=== PATIENT | male | born 1985 | race Caucasian/White ===

== ENCOUNTER 2017-04-02 06:59 | Emergency (ER) | payer MEDICAID ==
[2017-04-02] MEDS ORDERED: KETOROLAC 30 MG/ML VIAL IM ONE (07:20)
--- NOTE | 2017-04-02 07:25 | Emergency Department Record ---
History of Present Illness - General Chief Complaint: Back Pain/Injury Stated Complaint: BACK INJURY Time Seen by Provider: 04/02/17 07:15 Source: Patient Mode of Arrival: Ambulatory Limitations: No limitations - History of Present Illness Initial Comments: 31 yo male presents with lower back pain after trying to start a minibike motor. The pain radiates to the right gluteal area. No numbness or tingling. No weakness. No foot drop. He has a history of lumbar disease with prior surgery. No fever. No trauma. No changes in bowel or bladder function. MD Complaint: Back pain, Back injury Onset/Timin -: Days(s) Similar Symptoms Previously: Yes Place: Home Radiation: Right leg Severity scale (1-10): 8 Quality: Sharp Consistency: Constant Improves With: Immobilization Worsens With: Movement, Sitting upright, Supine Context: Other Associated Symptoms: Denies other symptoms - Related Data Previous Rx's Medication Instructions Recorded Cyclobenzaprine HCl [Flexeril] 10 mg PO TID #25 tablet 04/02/17 Methylprednisolone [Medrol Dose 0 mg PO UD #1 tab.ds.pk 04/02/17 Pack] Naproxen [Naprosyn] 500 mg PO Q12H #20 tab.dr 04/02/17 Allergies Allergy/AdvReac Type Severity Reaction Status Date / Time No Known Drug Allergies Allergy Verified 04/01/16 08:32 Travel Screening - Travel/Exposure Within Last 30 Days Have you traveled within the last 30 days?: No Location Detail:: [place] - Travel/Exposure Within Last Year Have you traveled outside the [place] in the last year?: No - Additonal Travel Details Have you been exposed to anyone with a communicable illness?: No - Travel Symptoms Symptom Screening: None Review of Systems Constitutional: Denies: Chills, Fever, Malaise, Weakness Eyes: Denies: Eye discharge ENT: Denies: Congestion, Throat pain Respiratory: Denies: Cough, Dyspnea, Hemoptysis, Stridor, Wheezes Cardiovascular: Denies: Chest pain, Palpitations, Syncope Endocrine: Denies: Fatigue Gastrointestinal: Denies: Abdominal pain, Constipation, Diarrhea, Nausea, Vomiting Genitourinary: Denies: Dysuria, Frequency, Hematuria, Retention, Urgency Musculoskeletal: Reports: Back pain, Myalgia. Denies: Joint swelling, Neck pain Skin: Denies: Bruising, Change in color, Rash Neurological: Denies: Headache, Numbness, Weakness Psychiatric: Denies: Anxiety Hematological/Lymphatic: Denies: Blood Clots, Easy bleeding, Easy bruising, Swollen glands Past Medical History - SOCIAL HISTORY Smoking Status: Current every day smoker Drug Use: Occassional Drug Use Detail:: Marijuana - RESPIRATORY Hx Respiratory Disorders: No - CARDIOVASCULAR Hx Cardio Disorders: No - NEURO Hx Neuro Disorders: No - GI Hx GI Disorders: No - Hx Genitourinary Disorders: No - ENDOCRINE Hx Endocrine Disorders: No - MUSCULOSKELETAL Hx Musculoskeletal Disorders: Yes Hx Back Injury: Yes (L4) - PSYCH Hx Psych Problems: No - HEMATOLOGY/ONCOLOGY Hx Hematology/Oncology Disorders: No Family Medical History Any Significant Family History?: No Physical Exam - General General Appearance: Alert, Oriented x3, Cooperative, No acute distress Limitations: No limitations - Head Head exam: Atraumatic, Normocephalic, Normal inspection - Eye Eye exam: Normal appearance, PERRL. negative: Conjunctival injection, Periorbital swelling - ENT ENT exam: Normal exam Ear exam: Normal external inspection Nasal Exam: Normal inspection Mouth exam: Normal external inspection - Neck Neck exam: Normal inspection - Respiratory Respiratory exam: Normal lung sounds bilaterally. negative: Respiratory distress - Cardiovascular Cardiovascular Exam: Regular rate, Normal rhythm, Normal heart sounds - GI/Abdominal GI/Abdominal exam: Soft. negative: Distended, Rigid, Tenderness - Rectal Rectal exam: Deferred - exam: Deferred - Extremities Extremities exam: Normal inspection, Full ROM, Normal capillary refill, Other ( No foot drop, no weakness with plantar or dorsiflexion). negative: Tenderness Image of Full Body: 1 - tender paraspinal, mild, normal inspection, - Back Back exam: Reports: Normal inspection, Paraspinal tenderness - Neurological Neurological exam: Alert, Normal gait, Oriented X3, Reflexes normal. negative: Altered, Motor sensory deficit - Psychiatric Psychiatric exam: Normal affect, Normal mood - Skin Skin exam: Dry, Intact, Normal color, Warm Course Vital Signs 04/02/17 07:02 Temperature 97.7 F Pulse Rate 64 Respiratory 16 Rate Blood Pressure 130/83 Pulse Ox 98 - Reevaluation(s) Reevaluation #1: The patient is not having any neurologic symptoms by history or on examination DC home with Medrol dose pack and msucle relaxant 04/02/17 07:24 Disposition Disposition: Discharge Clinical Impression: Lumbar strain Qualifiers: Encounter type: initial encounter Qualified Code(s): S39.012A - Strain of muscle, fascia and tendon of lower back, initial encounter Disposition: Home, Self-Care Condition: (1) Good Instructions: Low Back Strain (ED) Additional Instructions: Rest and avoid bending or lifting Return or be seen if worse, weakness, numb or any new concerns Prescriptions: Cyclobenzaprine HCl [Flexeril] 10 mg PO TID #25 tablet Methylprednisolone [Medrol Dose Pack] 0 mg PO UD #1 tab.ds.pk Naproxen [Naprosyn] 500 mg PO Q12H #20 tab.dr Forms: Patient Portal Access Time of Disposition: 07:31
== END 2017-04-02 07:54 | disposition home or self-care (01) ==
LOC: ER 06:59
DX: S39.012A Strain of muscle, fascia and tendon of lower back, initial encounter (principal); X50.0XXA Overexertion from strenuous movement or load, initial encounter; Y92.009 Unspecified place in unspecified non-institutional (private) residence as the place of occurrence of the external cause
CPT/HCPCS: 99283 ×2; 96372; J1885

== ENCOUNTER 2019-04-21 10:58 | Emergency (ER) | payer MEDICAID ==
[2019-04-21] MEDS ORDERED: METHYLPREDNISOLONE PF 125MG/VIAL IM ONE (11:27)
[2019-04-21] MEDS ORDERED: KETOROLAC 30 MG/ML VIAL IM ONE (11:37)
--- NOTE | 2019-04-21 11:37 | Emergency Department Record ---
History of Present Illness - General Chief Complaint: Back Pain/Injury Stated Complaint: LOWER BACK PAIN Time Seen by Provider: 04/21/19 11:09 Source: Patient Mode of Arrival: Ambulatory Limitations: No limitations - History of Present Illness Initial Comments: The patient is here due to worsening of his chronic low back pain. The patient has a long hx of similar issues and was working last week when he aggravated his low back. The pain is sharp and aching and much worse with any movement or bending. There is no pain radiating down the legs and no leg numbness, weakness or any bowel or bladder issues. The patient is scheduled for low back injections from the pain clinic in [place] next month. He denies any new issues or any traumatic injuries. MD Complaint: Back pain Onset/Timin -: Days(s) Similar Symptoms Previously: Yes Radiation: None Severity scale (1-10): 10 Quality: Sharp Improves With: None Worsens With: None Context: Other Associated Symptoms: Denies other symptoms - Related Data Home Medications Medication Instructions Recorded Confirmed Last Taken Gabapentin 300 mg PO TID 04/21/19 04/21/19 04/21/19 Hydrocodone/Acetaminophen 1 tab PO ASDIR 04/21/19 04/21/19 04/21/19 [Hydrocodone/Acetaminophen 5mg/325mg] Previous Rx's Medication Instructions Recorded Methylprednisolone [Medrol Dose 4 mg PO DAILY #1 tab.ds.pk 04/21/19 Pack] Allergies Allergy/AdvReac Type Severity Reaction Status Date / Time No Known Drug Allergies Allergy Verified 04/21/19 11:06 Travel Screening - Travel/Exposure Within Last 30 Days Have you traveled within the last 30 days?: No Review of Systems Constitutional: Denies: Chills, Fever Eyes: Denies: Eye discharge ENT: Denies: Congestion Respiratory: Denies: Cough, Dyspnea Past Medical History - SOCIAL HISTORY Smoking Status: Current every day smoker Alcohol Use: None Drug Use: None - RESPIRATORY Hx Respiratory Disorders: No - CARDIOVASCULAR Hx Cardio Disorders: No - NEURO Hx Neuro Disorders: No - GI Hx GI Disorders: No - Hx Genitourinary Disorders: No - ENDOCRINE Hx Endocrine Disorders: No - MUSCULOSKELETAL Hx Musculoskeletal Disorders: Yes Hx Back Injury: Yes (L4, T1 and L5) - PSYCH Hx Psych Problems: No - HEMATOLOGY/ONCOLOGY Hx Hematology/Oncology Disorders: No Family Medical History Any Significant Family History?: No Physical Exam - General General Appearance: Alert, Oriented x3, Cooperative, Mild distress (due to pain.) - Head Head exam: Atraumatic, Normocephalic - Eye Eye exam: Normal appearance, PERRL - Neck Neck exam: Normal inspection, Full ROM. negative: Tenderness - Respiratory Respiratory exam: Normal lung sounds bilaterally. negative: Respiratory distress - Cardiovascular Cardiovascular Exam: Regular rate, Normal rhythm, Normal heart sounds - GI/Abdominal GI/Abdominal exam: Soft, Normal bowel sounds. negative: Tenderness - Extremities Extremities exam: Normal inspection, Full ROM, Normal capillary refill. negative: Tenderness - Back Back exam: Reports: Normal inspection, Full ROM, Paraspinal tenderness (L4-5 and S1.), Vertebral tenderness (L4-5, chronic.), Other (Neg SLR bilaterally.). Denies: Muscle spasm, Rash noted, Tenderness - Neurological Neurological exam: Alert, Normal gait, Oriented X3, Reflexes normal. negative: Abnormal gait, Motor sensory deficit Course Vital Signs 04/21/19 11:02 Temperature 97.8 F Pulse Rate 120 H Respiratory 16 Rate Blood Pressure 153/102 Pulse Ox 99 - Reevaluation(s) Reevaluation #1: The patient is doing a lot better at this time. He is ready for home. He would like a work note also. 04/21/19 12:05 Disposition Disposition: Discharge Clinical Impression: Chronic low back pain Qualifiers: Back pain laterality: unspecified Sciatica presence: without sciatica Qualified Code(s): M54.5 - Low back pain Disposition: Home, Self-Care Condition: (2) Stable Instructions: Chronic Back Pain (ED) Additional Instructions: Please continue your home medicines and please take the Medrol dose pack starting tomorrow. Please see your pain specialists later this week if not better. Prescriptions: Methylprednisolone [Medrol Dose Pack] 4 mg PO DAILY #1 tab.ds.pk Forms: Patient Portal Access Time of Disposition: 12:07 Quality - Quality Measures Quality Measures: N/A - Blood Pressure Screening View Details: Yes Does Patient Have Any of the Following: No Blood Pressure Classification: Hypertensive Reading Systolic Measurement: 153 Diastolic Measurement: 102 Screening for High Blood Pressure: < First Hypertensive BP, F/U Documented > [[id number]] First Hypertensive Follow-up Interventions: Referral to alternative/primary care provider.
== END 2019-04-21 12:13 | disposition home or self-care (01) ==
LOC: ER 10:58
DX: G89.29 Other chronic pain (principal); M54.5 Low back pain; F17.210 Nicotine dependence, cigarettes, uncomplicated
CPT/HCPCS: 96372; 99283; J1885; J2930